=== PATIENT | female | born 1955 | race Caucasian/White ===

== ENCOUNTER 2021-10-13 08:20 | Outpatient (REF) | payer OTHER, SELFPAY ==
[2021-10-13 10:59] LABS: MANUAL DIFF FLAG NO
[2021-10-13 11:01] LABS: Basophils Percent Auto 0.4 % (0-2); Eosinophils Percent Auto 0.8 % (0-4); Hematocrit 42.9 % (37.0-47.0); Hemoglobin 14.7 g/dl (12.0-16.0); Imm Gran Abs Auto 0.01 X10*3/uL (0.00-0.03); Imm Gran Pct Auto 0.2 % (0.0-0.4); Lymphocytes Absolute Auto 1.3 X10*3/uL (1.2-4.9); Lymphocytes Percent Auto 27.2 % (20-40); Mean Corpuscular HGB Conc 34.3 g/dl (31.0-35.0); Mean Corpuscular Hemoglobin 30.6 pg (27.0-33.0); Mean Corpuscular Volume 89.4 fL (80.0-98.0); Mean Platelet Volume 9.4 fL (9.4-12.3); Monocytes Absolute Auto 0.5 X10*3/uL (0.1-1.2); Monocytes Percent Auto 9.9 % (2-11); Neutrophils Absolute Auto 2.9 x10*3/uL (2.0-8.3); Neutrophils Percent Auto 61.5 % (45-73); Platelet Count 260 X10*3/uL (160-400); Red Cell Distribution Width 11.5 % (11.0-16.0); White Blood Count 4.7 X10*3/uL (4.8-10.8)
[2021-10-13 12:45] LABS: Alanine Aminotransferase 10 U/L (0-31); Albumin Level 4.2 g/dL (3.5-5.0); Alkaline Phosphatase 103 U/L (39-117); Anion Gap 17 (12-20); Aspartate Amino Transferase 18 U/L (5-31); Bilirubin Total 0.5 mg/dL (0.0-1.0); Blood Urea Nitrogen 11 mg/dL (9-16); Calcium 9.1 mg/dL (8.4-10.2); Carbon Dioxide 21 mmol/L (22-29); Chloride 107 mmol/L (96-108); Cholesterol 235 mg/dL; Estimated Glomerular Filt Rate > 60; Glucose Fasting 94 mg/dL (60-99); HDL Cholesterol 48 mg/dL; LDL Cholesterol Calculated 146 mg/dl; Potassium 4.1 mmol/L (3.3-5.1); Sodium 141 mmol/L (135-145); Total Protein 7.4 g/dL (6.5-8.0); Triglycerides 208 mg/dL
[2021-10-13 13:06] LABS: Thyroid Stimulating Hormone 2.11 uIU/mL (0.32-4.0); Vitamin D 25-OH Total 23.5 ng/mL (>30)
== END 2021-10-13 08:21 | disposition home or self-care (01) ==
LOC: HO.MANLDS 08:20
PROVIDERS: PCP Internal Medicine; Visit Provider Internal Medicine
DX: Z00.00 Encounter for general adult medical examination without abnormal findings (principal)
CPT/HCPCS: 36415; 80053; 80061; 82306; 84443; 85025

== ENCOUNTER 2023-07-07 08:11 | Outpatient (REF) | payer OTHER, SELFPAY ==
[2023-07-07 13:53] LABS: Alanine Aminotransferase 10 U/L (0-31); Albumin Level 4.1 g/dL (3.5-5.0); Alkaline Phosphatase 103 U/L (39-117); Anion Gap 12 (12-20); Aspartate Amino Transferase 22 U/L (5-31); Bilirubin Total 0.5 mg/dL (0.0-1.0); Blood Urea Nitrogen 11 mg/dL (9-16); Calcium 9.2 mg/dL (8.4-10.2); Carbon Dioxide 25 mmol/L (22-29); Chloride 109 mmol/L (96-108); Cholesterol 154 mg/dL; Estimated Glomerular Filt Rate > 60; Glucose Random 80 mg/dL (60-115); HDL Cholesterol 44 mg/dL; LDL Cholesterol Calculated 78 mg/dl; Sodium 142 mmol/L (135-145); Total Protein 7.3 g/dL (6.5-8.0); Triglycerides 160 mg/dL
== END 2023-07-07 08:12 | disposition home or self-care (01) ==
LOC: HO.MANLDS 08:11
PROVIDERS: Visit Provider Physician Assistant
DX: E78.2 Mixed hyperlipidemia (principal)
CPT/HCPCS: 36415; 80053; 80061

== ENCOUNTER 2023-11-17 07:42 | Outpatient (REF) | payer OTHER, SELFPAY ==
[2023-11-17 13:23] LABS: MANUAL DIFF FLAG NO
[2023-11-17 13:29] LABS: Basophils Percent Auto 0.6 % (0-2); Eosinophils Percent Auto 1.1 % (0-4); Hematocrit 40.5 % (37.0-47.0); Imm Gran Abs Auto 0.01 X10*3/uL (0.00-0.03); Imm Gran Pct Auto 0.3 % (0.0-0.4); Lymphocytes Absolute Auto 1.4 X10*3/uL (1.2-4.9); Lymphocytes Percent Auto 38.7 % (20-40); Mean Corpuscular HGB Conc 34.6 g/dl (31.0-35.0); Mean Corpuscular Hemoglobin 31.6 pg (27.0-33.0); Mean Corpuscular Volume 91.4 fL (80.0-98.0); Mean Platelet Volume 10.2 fL (9.4-12.3); Monocytes Absolute Auto 0.4 X10*3/uL (0.1-1.2); Monocytes Percent Auto 12.4 % (2-11); Neutrophils Absolute Auto 1.7 x10*3/uL (2.0-8.3); Neutrophils Percent Auto 46.9 % (45-73); Platelet Count 231 X10*3/uL (160-400); Red Blood Count 4.43 X10*6/uL (4.20-5.50); Red Cell Distribution Width 11.5 % (11.0-16.0); White Blood Count 3.5 X10*3/uL (4.8-10.8)
[2023-11-17 17:25] LABS: Alanine Aminotransferase 9 U/L (0-31); Albumin Level 3.9 g/dL (3.5-5.0); Alkaline Phosphatase 97 U/L (39-117); Anion Gap 12 (12-20); Aspartate Amino Transferase 22 U/L (5-31); Bilirubin Total 0.5 mg/dL (0.0-1.0); Blood Urea Nitrogen 10 mg/dL (9-16); Calcium 9.4 mg/dL (8.4-10.2); Carbon Dioxide 26 mmol/L (22-29); Chloride 107 mmol/L (96-108); Cholesterol 167 mg/dL (<200); Estimated Glomerular Filt Rate > 60; Glucose Random 86 mg/dL (60-115); HDL Cholesterol 48 mg/dL (>40); LDL Cholesterol Calculated 85 mg/dL (<100); Potassium 3.9 mmol/L (3.3-5.1); Sodium 141 mmol/L (135-145); Total Protein 6.9 g/dL (6.5-8.0); Triglycerides 174 mg/dL (<150)
== END 2023-11-17 07:43 | disposition home or self-care (01) ==
LOC: HO.MANLDS 07:42
PROVIDERS: Visit Provider Physician Assistant
DX: Z00.00 Encounter for general adult medical examination without abnormal findings (principal); Z20.2 Contact with and (suspected) exposure to infections with a predominantly sexual mode of transmission
CPT/HCPCS: 36415; 80053; 80061; 85025

== ENCOUNTER 2024-05-05 13:44 | Outpatient (REF) | payer OTHER, SELFPAY ==
[2024-05-05 17:48] LABS: MANUAL DIFF FLAG NO
[2024-05-05 17:52] LABS: Basophils Percent Auto 0.5 % (0-2); Eosinophils Percent Auto 0.8 % (0-4); Hematocrit 39.3 % (37.0-47.0); Hemoglobin 13.9 g/dl (12.0-16.0); Lymphocytes Absolute Auto 1.3 X10*3/uL (1.2-4.9); Lymphocytes Percent Auto 33.9 % (20-40); Mean Corpuscular HGB Conc 35.4 g/dl (31.0-35.0); Mean Corpuscular Hemoglobin 31.9 pg (27.0-33.0); Mean Corpuscular Volume 90.1 fL (80.0-98.0); Mean Platelet Volume 10.1 fL (9.4-12.3); Monocytes Absolute Auto 0.4 X10*3/uL (0.1-1.2); Monocytes Percent Auto 9.7 % (2-11); Neutrophils Absolute Auto 2.2 x10*3/uL (2.0-8.3); Neutrophils Percent Auto 55.1 % (45-73); Platelet Count 246 X10*3/uL (160-400); Red Blood Count 4.36 X10*6/uL (4.20-5.50); Red Cell Distribution Width 11.8 % (11.0-16.0); White Blood Count 3.9 X10*3/uL (4.8-10.8)
[2024-05-05 18:10] LABS: Magnesium 2.2 mg/dL (1.6-2.6)
[2024-05-05 18:26] LABS: Free T4 (Free Thyroxine) 1.06 ng/dL (0.71-1.85); Thyroid Stimulating Hormone 1.57 uIU/mL (0.32-4.0); Vitamin D 25-OH Total 78.8 ng/mL (>30)
[2024-05-05 18:31] LABS: Vitamin B12 408 pg/mL (200-900)
== END 2024-05-05 13:45 | disposition home or self-care (01) ==
LOC: HO.MANLDS 13:44
PROVIDERS: Visit Provider Internal Medicine
DX: Z00.00 Encounter for general adult medical examination without abnormal findings (principal); E53.8 Deficiency of other specified B group vitamins; E78.2 Mixed hyperlipidemia
CPT/HCPCS: 36415; 82306; 82607; 83735; 84439; 84443; 85025

== ENCOUNTER 2025-05-22 09:20 | Outpatient (REF) | payer OTHER, SELFPAY ==
--- OUTSIDE RECORDS SUMMARY | 2025-05-22 09:57 | XMS_ITS | Continuity of Care Document ---
Author Organization [facility] Address [address] [facility] [place] [address] [place] [address] Assessment No assessment recorded. Plan of Treatment Reminders Order Date Submit Date Provider Last Modified By Organization Details Last Modified Time Details Appointments ANNUAL EXAM 2025 09:00A M DR FARR Not available Not available Not available Lab ferritin, serum or plasma 2024 025 [facility], [address] [place] [address], [id number], 05/18/2025 10:03:19 iron + total iron-bind ing capacity (TIBC), serum 2024 025 [facility], [address] [place] [address], [id number], 05/18/2025 10:03:19 vitamin B12, serum 2024 025 [facility], [address] [place] [address], [id number], 05/18/2025 10:03:19 C-reactiv e protein, quantitat gaye, serum or plasma 2024 025 [facility], [address] [place] [address], [id number], 05/18/2025 10:03:19 CBC 2024 025 [facility], [address] [place] [address], [id number], 05/18/2025 10:03:19 CBC 2024 025 [facility], [address] [place] [address], [place], [id number], 05/18/2025 10:03:19 CMP, serum or plasma 2024 025 [facility], [address] [place] [address], [place], [id number], 05/18/2025 10:03:19 lipid panel, serum 2024 025 [facility], [address] [place] [address], [place], [address], 05/18/2025 10:03:19 Referral None recorded. Procedures None recorded. Surgeries None recorded. Imaging None recorded. Medication Orders acetazola mide 125 mg tablet [address] [id number], [address] [place] [address], [id number], 05/18/2025 10:01:59 Patient TargetsNo targets recorded. Patient Instructions Encounter Date Encounter Id Patient Instructions Last Modified By Organization Details Last Modified Time 05/18/2025 [id number] learning about altitude sickness [email or web address] Not available 05/18/2025 10:01:53 Reason for Referral None Reported. Problems Name Problem SNOMED Code Status Onset Date Resolution Date Notes Provider Name and Address Organization Details Recorded Time Cobalamin deficiency 191646875 Active 2018 Jolene sweeney [facility] 9 09:20:57 Mitral valve regurgitat ion 63525839 Active 2018 DINORA Garza [address] [place] [address], [phone], [facility] 9 09:33:35 Eczema 06416522 Active 2018 DINORA Garza [address] [place] [address], [phone], [facility] 9 09:06:50 Onychomyco sis 597072303 Active 2018 [facility] [address], [address], [facility] 9 09:17:45 Mereta of toe 86841433 Active 2018 [facility] [address] [place], [address], [facility] 9 09:17:54 Osteopenia 026392209 Active 2021 Mario Farr DO [address] [place] [address], [address], [facility] 2 13:59:47 Hyperlipid emia 13795872 Active 2022 ANAYA ELIZABETH [address] [place] [address], [address], [facility] 3 15:45:54 Transient cerebral ischemia 266859539 Active 2022 ANAYA ELIZABETH [address] [place] [address], [address], [facility] 3 15:50:49 Right upper quadrant pain 198591506 Active 2022 Mario Farr DO [address] [place] [address], [address], [facility] 3 22:46:11 Right lower quadrant pain 225414145 Active 2022 Mario Farr DO [address] [place] [address], [address], [facility] 3 14:40:28 Aphthous ulcer of mouth 747238748 Active 2023 ANAYA ELIZABETH [address] [place] [address], [phone], [facility] 4 10:14:23 Effects of high altitude 07645800 Active 2023 ANAYA ELIZABETH [address] [place] [address] [place], [address], [facility] 4 11:55:54 Lesion of lip 294612842 Active 2023 Mario FarrDO [address] [place] [address], [address], [facility] 4 11:14:56 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 Procedures Surgical History Date Name Laterality Status Provider Name and Address Organization Details Recorded Time 024 Colonoscopy completed Mario FarrDO [address] [place] [address], [phone], [facility] 01/18/2024 13:54:10 019 Most Recent Mammogram completed Jolene Rodas [facility] 08/14/2019 08:27:22 017 Date of Last Pap Smear completed [address], [phone], [facility] 08/14/2019 09:09:55 reconstruction of anterior cruciate ligament of knee joint completed [address], [address], [facility] 08/14/2019 09:09:17 open reduction of fracture with internal fixation completed Yael [address], [address], [facility] 08/14/2019 09:09:13 Imaging Results None recorded. Procedure Notes None recorded. Medical Equipment None Reported. Allergies No known drug allergies Medications Name Sig Start Date Stop Date Status Note LastModified by Organization Details LastModified Time BD Luer-Kristian Syringe 3 mL 23 x 1 USE DIRECTED ONCE MONTHLY active Not Available Not Available No t Available desonide 0.05 % topical cream APPLY TO THE AFFECTED AREA TWICE DAILY FOR UP TO 2 WEEKS PER MONTH NEEDED active Not Available Not Available No t Available atorvastati n 80 mg tablet Take 1 tablet every day by oral route for 90 days. 01/13 completed Not Available Not Available Not Available prednisone 10 mg tablet 05/18 completed Not Available Not Available Not Available acetazolami de 125 mg tablet Take 1 tablet twice a day by oral route for 14 days. 2024 active Not Available Not Available Not Avai lable phenazopyri dine 200 mg tablet 11/04 completed Not Available Not Available Not Available valacyclovi r 500 mg tablet TAKE 2 TABLETS BY MOUTH EVERY DAY FOR 7 DAYS 05/02 completed Not Available Not Available Not Available ciprofloxac in 500 mg tablet TAKE 1 TABLET BY MOUTH EVERY 12 HOURS FOR 7 DAYS FOR DIARRHEA active Not Available Not Available No t Available sulfamethox azole 800 mg-trimetho prim 160 mg tablet 10/10 completed Not Available Not Available Not Available aspirin 81 mg tablet,katherine yed release TAKE 1 TABLET BY MOUTH DAILY active Not Available Not Available No t Available amoxicillin 500 mg tablet TAKE 1 TABLET BY MOUTH THREE TIMES DAILY UNTIL ALL TAKEN 05/18 completed Not Available Not Available Not Available nystatin-tr iamcinolone 100,000 unit/gram-0 .1 % topical ointment APPLY TOPICALLY TO THE AFFECTED AREA TWICE DAILY active Not Available Not Available No t Available oxycodone-a cetaminophe n 5 mg-325 mg tablet TAKE 1 TABLET BY MOUTH EVERY 6 HOURS FOR PAIN 05/18 completed Not Available Not Available Not Available triamcinolo ne acetonide 0.1 % dental paste BRUSH TEETH WITH PASTE TWICE DAILY DIRECTED FOR 30 DAYS active Not Available Not Available No t Available phenazopyri dine 100 mg tablet 10/10 completed Not Available Not Available Not Available dexamethaso ne 2 mg tablet TAKE 1 TABLET BY MOUTH EVERY 6 HOURS FOR 10 DAYS NEEDED 05/02 completed Not Available Not Available Not Available cyanocobala min (vit B-12) 1,000 mcg/mL injection solution ADMINISTE R 1 ML IN THE MUSCLE 1 TIME PER MONTH active Not Available Not Available No t Available tacrolimus 0.1 % topical ointment 08/16 completed Not Available Not Available Not Available triamcinolo ne acetonide 0.1 % topical ointment APPLY THIN LAYER TOPICALLY TO THE AFFECTED AREA TWICE DAILY active Not Available Not Available No t Available triamcinolo ne acetonide 0.025 % topical ointment APPLY TOPICALLY TO THE AFFECTED AREA OF LIPS TWICE DAILY active Not Available Not Available No t Available diclofenac sodium 75 mg tablet,katherine yed release TAKE 1 TABLET BY MOUTH TWICE DAILY WITH MEALS active Not Available Not Available No t Available pravastatin 20 mg tablet TAKE 1 TABLET BY MOUTH EVERY DAY active Not Available Not Available No t Available mupirocin 2 % topical ointment APPLY A SMALL AMOUNT TO THE AFFECTED AREA BY TOPICAL ROUTE 3 TIMES PER DAY 10/10 completed Not Available Not Available Not Available ketoconazol e 2 % topical cream APPLY TOPICALLY TO THE AFFECTED AREA OF LIPS TWICE DAILY UNTIL RESOLVED active Not Available Not Available No t Available chlorhexidi ne gluconate 0.12 % mouthwash 11/04 completed Not Available Not Available Not Available BD Integra Needle 23 gauge x 1 10/10 completed Not Available Not Available Not Available GaviLyte-G 236 gram-22.74 gram-6.74 gram-5.86 gram oral solution 11/04 completed Not Available Not Available Not Available Flonase Allergy Relief 1 spary in each nostril once a day 12/20 completed Not Available Not Available Not Available BinaxNOW COVID-19 Ag Self Test kit TEST DIRECTED TODAY 11/03 completed Not Available Not Available Not Available Vitals Date Recorded Body height Body mass index (BMI) Body weight Heart rate Oxygen saturation Oxygen saturation in Arterial blood by Pulse oximetry Systolic blood pressure Diastolic blood pressure Provider Name and Address Organization Details Last Updated DateTime 5 149.86 cm 22.4 kg/m2 75715.7 5 g 66 /min 96 % 96 % 118 mm[Hg] 64 mm[Hg] [facility] 5 09:36:53 Social History Question Answer Notes LastModified by Organizat ion Details LastModified Time Tobacco Smoking Status Never Smoker Not Available [employer] 09/24/2020 03:36:24 What Was The Date Of Your Most Recent Tobacco Screening? 05/18/2025 [email or web address] Information not available 05/18/2025 How Much Tobacco Do You Smoke? No [id number] Information not available 09/24/2020 How Many Years Have You Smoked Tobacco? 0 [id number] Information not available 09/24/2020 Sex: Female Functional Status Question Answer Note LastModified by Organizat ion Details LastModified Time Do you or have you ever used any other forms of tobacco or nicotine? No [email or web address] Information not available 11/01/2023 Do you or have you ever used smokeless tobacco? Never used smokeless tobacco Information not available 11/01/2023 Do you or have you ever used e-cigarettes or vape? Never used electronic cigarettes Information not available 11/01/2023 Mental Status None recorded. Family History Relationship Description Onset Age of this Age Resolved Age Notes LastModified by Organization Details LastModified Time Maternal Grandmother Malignant tumor of breast [email or web address] Not available 09:27:10 Father Myocardial infarction 60 [email or web address] Not available 07/24 09:07:50 Father Type 2 diabetes mellitus [email or web address] Not available 09:27:10 Mother Heart valve replacement [email or web address] Not available 0 05/18/2025 09:27:10 Mother Lupus erythematosu s [email or web address] Not available 09:27:10 Medical History Condition Response Coronary Artery Disease N Other N Gout N Blood Diseases N Kidney Stones N Breast Cancer N Blood Transfusion N Lung Disease N Depression N COPD N Defects or Inherited Disease N Anxiety Disorder N Muscle, Joint, or Bone Problems N Obesity N Vision or Eye Problems N Arthritis N Infertility N Polyps N Mental Disorder N Cancer N Stroke N Varicosities N Endometriosis N Bladder or Kidney Problems N High Cholesterol N Liver Disease N Fibromyalgia N Headaches N Kidney Disease N Allergies/Hayfever N Heart Problems N Hospitalizations N Thyroid Problems N GI Problems N Eating Disorder N Skin Problems N Anemia N MRSA exposure N Constipation N Mental Illness N Diabetes N Ovarian Cancer N Seizures/Epilepsy N Tuberculosis N Congestive Heart Failure (CHF) N Eczema N Abuse/Domestic Violence N Diverticulitis N Asthma N Reflux/GERD N Hepatitis N Heart Disease N Pulmonary Embolism N Hypertension N Chicken Pox N Autism Spectrum Disorder (ASD) N Osteoporosis N Gynecological History Statement/Question Response If Post Menopausal, Age at Menopause 52 Abnormal Pap N Date of Last Pap Smear 04/27/2017 Most Recent Mammogram 01/19/2019 Age at Menarche 14 Obstetrics History GPAL:G 0 P 0 0 0 0 Immunizations Vaccine Type Date Status Note Provider Nam e and Address Organization Details Recorded Time COVID-19, mRNA, LNP-S, bivalent, PF, 50 mcg/0.5 mL or 25mcg/0.25 mL dose 1 completed Not Available [facility] 06/07/2023 15:35:14 COVID-19, mRNA, LNP-S, bivalent, PF, 50 mcg/0.5 mL or 25mcg/0.25 mL dose 1 completed Not Available [facility] 06/07/2023 15:35:14 COVID-19, mRNA, LNP-S, bivalent, PF, 50 mcg/0.5 mL or 25mcg/0.25 mL dose 1 completed Not Available [facility] 06/07/2023 15:35:14 COVID-19, mRNA, LNP-S, bivalent, PF, 10 mcg/0.2 mL dose 2 completed Not Available [facility] 06/07/2023 15:35:14 influenza, unspecified formulation 1 completed Not Available [facility] 06/07/2023 15:35:14 influenza, unspecified formulation 2 completed Not Available [facility] 06/07/2023 15:35:14 COVID-19, mRNA, LNP-S, PF, 30 mcg/0.3 mL dose 2 completed Not Available [facility] 06/07/2023 15:35:14 Td(adult) unspecified formulation 1 completed [facility] 08/14/2019 08:26:09 Past Encounters Encounter ID Performer Location Encounter Start Date Encounter Closed Date Diagnosis/Indication Diagnosis SNOMED-CT Code Diagnosis ICD10 Code Diagnosis Note [id number] DO [facility] [address] [facility],[place] [address] 05/18/2025 09:26:50 05/18/2025 10:19:22 Active or passive immunization 934505242 Z23 will be getting the shingrix otherwise utd Hyperlipidemia 86917280 E78.2 reviewed lab from last check doing well with pravastat Well adult 739153748 Z00 .00 awesome amazing and no recc PLAYED RUGBY =FOR YEARS Travel abroad 241247482 Z78.9 going in [facility] reccomend yellow fever as she will be stopping in [facility] Effects of high altitude 11677747 T70.20XD Health Concerns Section Related Observation LastModified by Organization Detai ls LastModified Time None Recorded Concern Status LastModified by Organization Details LastModified Time None Recorded Payers Encounter Date Sequence Insurance Name Policy Number Policy Tavera Covered Member ID Tavera Member ID Guarantor Name 05/18/2025 1 LIZETH (POS) [id number] Moriah Mcaei [id number] Terri Silverman Notes Date Note Type Note Provider Name and Address Organization Details Recorded Time 05/18/20 25 text/htm l Annual WellnessReported bypatient.Diet and Nutrition:healthy diet Fracture Risk:no history of fractures; no recent explained fracture; no sudden unexplained fractures; no previous musculoskeletal injuries Physical Activity:exercises on a regular basis; recent increase in physical activity; good physical condition Additional Lifestyle Factors:no tobacco use; no alcohol intake; stopped drinking alcohol Depression Risk:never feels sad, empty, or tearful; no loss of interest in activities; no significant changes in weight; no sleep disturbances or insomnia; no agitation; no loss of energy; no feelings of worthlessness or guilt; no thoughts of suicide; no history of depression; no history of mood disorders Hearing:no loss of hearing Vision:no vision problemsCare Management - HyperlipidemiaReported bypatient.Control:usually well controlled; improving; at goal Complications:no coronary artery disease; no heart attack; no cardiovascular disease; no pancreatitis; no stroke Mario Farr, DO [address] [facility], [place], [address], [facility] 05/18/2025 10:03:27 OBGyn Episode No OBEpisode recorded.
[2025-05-22 13:31] LABS: MANUAL DIFF FLAG NO
[2025-05-22 13:36] LABS: Hematocrit 41.4 % (37.0-47.0); Hemoglobin 14.1 g/dl (12.0-16.0); Imm Gran Abs Auto 0.01 X10*3/uL (0.00-0.03); Imm Gran Pct Auto 0.3 % (0.0-0.4); Lymphocytes Absolute Auto 1.2 X10*3/uL (1.2-4.9); Mean Corpuscular HGB Conc 34.1 g/dl (31.0-35.0); Mean Corpuscular Hemoglobin 30.6 pg (27.0-33.0); Mean Corpuscular Volume 89.8 fL (80.0-98.0); NRBC Abs Auto 0.000 X10*3/uL (0.0-0.012); NRBC Pct Auto 0.0 /100WBC (0.0-0.2); Platelet Count 259 X10*3/uL (160-400); Red Blood Count 4.61 X10*6/uL (4.20-5.50); White Blood Count 3.8 X10*3/uL (4.8-10.8)
[2025-05-22 14:12] LABS: Alanine Aminotransferase 9 U/L (0-31); Albumin Level 4.3 g/dL (3.5-5.0); Alkaline Phosphatase 94 U/L (39-117); Anion Gap 13 (12-20); Aspartate Amino Transferase 24 U/L (5-31); Blood Urea Nitrogen 11 mg/dL (9-16); Calcium 9.3 mg/dL (8.4-10.2); Carbon Dioxide 24 mmol/L (22-29); Chloride 107 mmol/L (96-108); Cholesterol 161 mg/dL (<200); Estimated Glomerular Filt Rate > 60; Ferritin 49 ng/mL (10-250); HDL Cholesterol 58 mg/dL (>40); Iron 93 mcg/dL (30-160); Percent Iron Saturation 32 % (15-50); Potassium 4.1 mmol/L (3.3-5.1); Sodium 140 mmol/L (135-145); Total Iron Binding Capacity 290 mcg/dL (228-428); Total Protein 7.1 g/dL (6.5-8.0); Triglycerides 69 mg/dL (<150); Unsaturated Iron Binding 197 ug/dL
[2025-05-22 14:23] LABS: Vitamin B12 588 pg/mL (200-900)
== END 2025-05-22 09:21 | disposition home or self-care (01) ==
LOC: HO.MANLDS 09:20
PROVIDERS: Visit Provider Internal Medicine
DX: E78.2 Mixed hyperlipidemia (principal); Z78.9 Other specified health status
CPT/HCPCS: 36415; 80053; 80061; 82607; 82728; 83540; 85025; 86140